=== PATIENT | female | born 1975 | race Two or more races ===

== ENCOUNTER 2017-06-03 16:02 | Emergency (ER) | payer BC ==
[~2017-06-03] VITALS: Ht 165.1 cm; Wt 54.4 kg
[2017-06-03] MEDS ORDERED: IV NS 0.9% 1,000 ML ONE ×2 (16:18→17:09)
[2017-06-03] MEDS ORDERED: IV NS 0.9% 1,000 ML BAG IV ONE ×3 (16:30→17:30)
[2017-06-03 16:36] LABS: CALCIUM, SERUM 9.4 mg/dL (8.5-10.1); POTASSIUM 3.6 mmol/L (3.5-5.1)
[2017-06-03 16:39] LABS: BASOPHILS % (AUTO) 0.9 % (0.0-2.0); EOSINOPHILS # (AUTO) 0.1 /CMM (0.0-0.7); EOSINOPHILS % (AUTO) 1.7 % (0.0-6.0); HEMATOCRIT 34 % (33-45); LYMPHOCYTES # (AUTO) 1.7 /CMM (0.8-4.8); MEAN CORPUSCULAR HEMOGLOBIN 30 PG (26.0-33.0); MEAN CORPUSCULAR HGB CONC 33 g/dl (31.0-36.0); MEAN CORPUSCULAR VOLUME 91 fL (82-100); MONOCYTES # (AUTO) 0.3 /CMM (0.1-1.30); NEUTROPHILS # (AUTO) 3.1 /CMM (1.8-8.9); NEUTROPHILS % (AUTO) 58.4 % (43.0-81.0); PLATELET COUNT (AUTO) 184 /CMM (150-450); RDW COEFFICIENT OF VARIATION 15.2 (11.5-15.0); RED BLOOD CELL COUNT(AUTO) 3.71 MIL/uL (4.0-5.2); WHITE BLOOD COUNT (AUTO) 5.2 K/uL (4.3-11.0)
[2017-06-03] MEDS ORDERED: IV SET PRIMARY PUMP SET 1 EA INFUS.SET MC ONE (17:09)
[2017-06-03] MEDS ORDERED: IV NS 0.9% 0 ML ONE (17:53)
[2017-06-03 18:26] VITALS: BP 105/83
== END 2017-06-03 18:26 | disposition home or self-care (01) ==
LOC: ER 16:03
DX: F19.10 Other psychoactive substance abuse, uncomplicated (principal); E86.0 Dehydration; E03.9 Hypothyroidism, unspecified; Z59.0 Homelessness; F17.200 Nicotine dependence, unspecified, uncomplicated
CPT/HCPCS: 36415; 71010; 80048; 82962; 84703; 85025; 93005; 96360; 96361; 99285; A4606; J7030 ×2; Z7610